=== PATIENT | female | born 1950 | race Caucasian/White ===

== ENCOUNTER 2019-11-10 09:36 | Day surgery (SDC) | payer MEDICARE, OTHER ==
[~2019-11-10 09:36] MED LIST: Lactated Ringers 1,000 ML IV SCH; Sodium Chloride 0.9% 10 ML SDV IV PRN; Sodium Chloride 0.9% 10 ML Syringe FLUSH PRN; Sodium Chloride 0.9% 2.5 ML Syringe FLUSH PRN
--- NOTE | 2019-11-10 11:04 | PCM.PREANE ---
Preanesthetic Assessment - Anesthesia/Transfusion/Family Hx Anesthesia History: Prior Anesthesia Reaction Type of Anesthesia Reaction: Excessive Nausea/Vomiting Family History of Anesthesia Reaction: No Transfusion History: No Prior Transfusion(s) - Review of Systems General: No Symptoms Pulmonary: No Symptoms Cardiovascular: No Symptoms Neurological: No Symptoms Other: Reports: Anxiety - Physical Assessment NPO Status Date: 11/09/19 Vital Signs: Last Vital Signs Temp 97.2 F 11/10/19 10:00 Pulse 65 11/10/19 10:00 Resp 15 11/10/19 10:00 BP 118/73 11/10/19 10:00 Pulse Ox 94 L 11/10/19 10:00 Height: 5 ft 1 in Weight: 68.946 kg ASA Class: 2 Mental Status: Alert & Oriented x3 Airway Class: Mallampati = 2 Dentition: Reports: Normal Dentition ROM/Head Extension: Full Lungs: Clear to Auscultation, Normal Respiratory Effort Cardiovascular: Regular Rate, Regular Rhythm - Allergies Allergies/Adverse Reactions: Allergies Allergy/AdvReac Type Severity Reaction Status Date / Time Penicillins Allergy Rash Verified 11/05/19 15:21 Sulfa (Sulfonamide Allergy Hives Verified 11/05/19 15:21 Antibiotics) - Blood Blood Available: No - Anesthesia Plan Pre-Op Medication Ordered: None - Acknowledgements Anesthesia Type Planned: General Anesthesia Pt an Appropriate Candidate for the Planned Anesthesia: Yes Alternatives and Risks of Anesthesia Discussed w Pt/Guardian: Yes Pt/Guardian Understands and Agrees with Anesthesia Plan: Yes Additional Comments: anes prob list: thy repl, anxiety-on ativan, PLAN: tiva PreAnesthesia Questionnaire HEENT History: Reports: Allergic Rhinitis, Other (See Below) Other HEENT History: glasses Gastrointestinal History: Reports: GERD [employer] History: Reports: Psychiatric History: Reports: Anxiety Endocrine/Metabolic History: Reports: Hypothyroidism Other Endocrine/Metabolic History: hx of Graves disease- took radiation pill to destroy thyroid - Past Surgical History Head Surgeries/Procedures: Reports: None GI Surgical History: Reports: Appendectomy Female Surgical History: Reports: D&C, Hysterectomy, Salpingo-Oophorectomy Musculoskeletal Surgical History: Reports: Carpal Tunnel, Other (See Below) Other Musculoskeletal Surgeries/Procedures:: trigger finger release - SUBSTANCE USE Smoking Status *Q: Never Smoker Recreational Drug Use History: No - HOME MEDS Home Medications: Home Meds Alendronate Sodium 70 mg PO ASDIRECTED 11/05/19 [History] Biotin 1 mg PO DAILY 11/05/19 [History] Cholecalciferol (Vitamin D3) [Vitamin D3] 125 mcg PO DAILY 11/05/19 [History] Fluticasone Propionate [Flonase Allergy Relief] 1 spray KATIE DAILY PRN 11/05/19 [ History] Hyoscyamine Sulfate 0.125 mg PO QID PRN 11/05/19 [History] L.acidoph,Paracasei, B.lactis [Probiotic] 1 cap PO DAILY 11/05/19 [History] LORazepam [Ativan] 0.5 mg PO TID PRN 11/05/19 [History] Levothyroxine Sodium [Synthroid] 100 mcg PO QAM 11/05/19 [History] Magnesium 200 mg PO DAILY 11/05/19 [History] Montelukast Sodium 10 mg PO DAILY 11/05/19 [History] Sargents-3S/DHA/Epa/Fish Oil [Sargents-3 Fish Oil 1,200 mg Sfgl] 1 cap PO DAILY [History] Rosuvastatin Calcium 10 mg PO DAILY 11/05/19 [History] Triamcinolone Acetonide [Triamcinolone Acetonide 0.1% Crm] 1 dose TOP ASDIRECTED PRN 11/05/19 [History] busPIRone [Buspar] 10 mg PO DAILY PRN 11/05/19 [History] - CURRENT (IN HOUSE) MEDS Current Meds: Current Medications Lactated Ringer's (Ringers, Lactated) 1,000 mls @ 125 mls/hr IV ASDIRECTED MATIAS Sodium Chloride (Saline Flush) 10 ml FLUSH ASDIRECTED PRN PRN Reason: Keep Vein Open Sodium Chloride (Saline Flush) 2.5 ml FLUSH ASDIRECTED PRN PRN Reason: Keep Vein Open Sodium Chloride (Normal Saline) 10 ml IV ASDIRECTED PRN PRN Reason: IV Use
[2019-11-10] MEDS ORDERED: Ondansetron 4 MG/2 ML SDV ONE (12:39)
[2019-11-10] MEDS ORDERED: fentaNYL 100 MCG/2 ML SDV ONE (12:39)
[2019-11-10] MEDS ORDERED: Propofol 200 MG/20 ML SDV ONE (12:39)
--- NOTE | 2019-11-10 13:35 | PCM.OPNOTE ---
- General Post-Op/Procedure Note Date of Surgery/Procedure: 11/10/19 Operative Procedure(s): Diagnostic EGD and biopsy Findings: Grossly normal EGD Pre Op Diagnosis: Heartburn, epigastric pain Post-Op Diagnosis: same Anesthesia Technique: MAC Primary Surgeon: Fartun Villafuerte Condition: Good
--- NOTE | 2019-11-10 14:15 | PCM.POSTAN ---
POST ANESTHESIA ASSESSMENT - MENTAL STATUS Mental Status: Alert, Oriented - VITAL SIGNS Vital Signs: Last Vital Signs Temp 97.2 F 11/10/19 10:00 Pulse 65 11/10/19 10:00 Resp 15 11/10/19 10:00 BP 118/73 11/10/19 10:00 Pulse Ox 94 L 11/10/19 10:00 - RESPIRATORY Respiratory Status: Respiratory Rate WNL, Airway Patent, O2 Saturation Stable - CARDIOVASCULAR CV Status: Pulse Rate WNL, Blood Pressure Stable - GASTROINTESTINAL GI Status: No Symptoms - POST OP HYDRATION Hydration Status: Adequate & Stable
--- NOTE | 2019-11-10 14:16 | PCM48HPAN ---
Post Anesthesia Note - EVALUATION WITHIN 48HRS OF ANESTHETIC Vital Signs in Normal Range: Yes Patient Participated in Evaluation: Yes Respiratory Function Stable: Yes Airway Patent: Yes Cardiovascular Function Stable: Yes Hydration Status Stable: Yes Pain Control Satisfactory: Yes Nausea and Vomiting Control Satisfactory: Yes Mental Status Recovered: Yes Vital Signs: Last Vital Signs Temp 97.2 F 11/10/19 10:00 Pulse 65 11/10/19 10:00 Resp 15 11/10/19 10:00 BP 118/73 11/10/19 10:00 Pulse Ox 94 L 11/10/19 10:00
--- NOTE | 2019-11-11 19:11 | OR ---
SURGEON: FARTUN VILLAFUERTE MD DATE OF PROCEDURE: 11/10/2019 PREOPERATIVE DIAGNOSIS: Heartburn. POSTOPERATIVE DIAGNOSIS: Heartburn. PROCEDURE PERFORMED: Diagnostic esophagogastroduodenoscopy with biopsy. PRIMARY SURGEON: Fartun Villafuerte MD. ANESTHESIA: MAC. INSTRUMENT USED: Olympus endoscope. EXTENT OF EXAM: To the second portion of duodenum. PREPARATION: Good. LIMITATIONS: None. INDICATIONS FOR EXAMINATION: The patient is a 69-year-old female who has been having increasing heartburn symptoms. I explained the need for diagnostic EGD. I explained the procedure, expected perioperative course, and risks. The patient verbalized understanding and wishes to proceed. PROCEDURE IN DETAIL: The patient was brought into the endoscopy suite and placed in a beach chair position. A time-out was completed verifying the patient's name, age, date of , allergies, and procedure to be performed. Monitored anesthesia care was induced and a bite block was placed in the patient's mouth. Continuous oxygen was provided via nasal cannula throughout the procedure. After adequate sedation was achieved, a well-lubricated endoscope was placed in the patient's mouth and advanced under direct visualization to the second portion of duodenum. This appeared normal and a photograph was taken. The scope was then fully withdrawn while examining the color, texture, anatomy, and integrity of the mucosa of the upper GI tract. The duodenum appeared normal. The scope was brought into the stomach and a photograph was taken of the pylorus and GE junction. Both appeared normal. Gastric mucosa was free of inflammation or ulceration. Biopsies were taken of the gastric antrum, body, and fundus and sent for histologic review and H. pylori testing. The scope was brought into the distal esophagus and a photograph was taken of a normal-appearing Z-line. Biopsy was taken 1 cm above the Z-line of the esophagus using cold biopsy forceps. The remainder of the esophagus was normal. The scope was removed and this procedure was terminated. The patient tolerated the procedure well and was transferred to the PACU in stable condition. ENDOSCOPIC DIAGNOSIS: Heartburn. RECOMMENDATIONS: Follow up in clinic in 2 weeks to discuss the biopsy results. MARCO / DELIA /[id number]
== END 2019-11-10 14:00 | disposition home or self-care (01) ==
LOC: MW.SDS 09:36
PROVIDERS: ATTEND Surgery
DX: K29.50 Unspecified chronic gastritis without bleeding (principal); E03.9 Hypothyroidism, unspecified; Z88.0 Allergy status to penicillin; Z88.2 Allergy status to sulfonamides; Z79.899 Other long term (current) drug therapy
CPT/HCPCS: 43239; J2001; J2405; J2704; J3010; J7120

== ENCOUNTER 2022-11-22 16:42 | Emergency (ER) | payer MEDICARE, OTHER | END 2022-11-22 19:43 | disposition home or self-care (01) | LOC: MW.ED 16:42 | DX: S52.502A Unspecified fracture of the lower end of left radius, initial encounter for closed fracture (principal); S52.612A Displaced fracture of left ulna styloid process, initial encounter for closed fracture; E03.9 Hypothyroidism, unspecified; Z88.0 Allergy status to penicillin; Z88.2 Allergy status to sulfonamides; Z79.899 Other long term (current) drug therapy; Z90.49 Acquired absence of other specified parts of digestive tract; Z90.710 Acquired absence of both cervix and uterus; W00.0XXA Fall on same level due to ice and snow, initial encounter | CPT/HCPCS: 29125; 73110-26-LT; 73110-LT; 99283 ==

== ENCOUNTER 2023-03-05 10:30 | Day surgery (SDC) | payer MEDICARE, OTHER ==
[~2023-03-05 10:30] MED LIST changes: +Propofol 200 MG/20 ML SDV ONE; -Sodium Chloride 0.9% 10 ML SDV IV PRN; +Sodium Chloride 0.9% 20 ML SDV IV PRN
== END 2023-03-05 12:20 | disposition home or self-care (01) ==
LOC: MW.SDS 10:30
PROVIDERS: ATTEND Surgery
DX: Z12.11 Encounter for screening for malignant neoplasm of colon (principal); D12.2 Benign neoplasm of ascending colon; K29.50 Unspecified chronic gastritis without bleeding; K64.3 Fourth degree hemorrhoids; K21.9 Gastro-esophageal reflux disease without esophagitis; F41.9 Anxiety disorder, unspecified; F32.A Depression, unspecified; E78.5 Hyperlipidemia, unspecified; E03.9 Hypothyroidism, unspecified; M85.80 Other specified disorders of bone density and structure, unspecified site; Z88.0 Allergy status to penicillin; Z88.2 Allergy status to sulfonamides; Z79.899 Other long term (current) drug therapy; Z90.49 Acquired absence of other specified parts of digestive tract; Z90.89 Acquired absence of other organs; Z90.710 Acquired absence of both cervix and uterus; Z98.890 Other specified postprocedural states; Z79.890 Hormone replacement therapy
CPT/HCPCS: 00813; 88305; 88342; 99100; J2704; J7120